=== PATIENT | female | born 1960 | race African-American/Black ===

== ENCOUNTER 2021-08-07 08:08 | Emergency (ER) | payer OTHER, SELFPAY ==
[2021-08-07] VITALS (20 sets, daily range): BP systolic 132–157; BP diastolic 64–80; PULSE 80–89; RESP 16–18; TEMP 36.6; O2SAT 93–98
--- NOTE | ~2021-08-07 | XR_ITS ---
EXAMINATION: XR lumbar spine min 4V DATE: 08/07/2021 09:34 INDICATION: Low back pain. TECHNIQUE: 5 views of lumbar spine were obtained. COMPARISON: None. FINDINGS: There is 3 mm retrolisthesis of L2 on L3. There is 4 degrees dextrocurvature of lumbar spin e. Vertebral body heights are normal. There is moderately decreased disc height at L2-L3 and mildly d ecreased disc height at L3-L4. There are endplate osteophytes at all levels. There is multilevel mild facet joint osteoarthritis. Surgical clips in the right upper quadrant are likely from cholecystecto my. IMPRESSION: 1. Moderate lumbar spondylosis. Reviewed, dictated and finalized at location A.
[2021-08-07] MEDS: KETOROLAC 30 MG/ML VIAL (*BKC) (09:09)
[2021-08-07] MEDS: fentaNYL CITRATE INJ (*CRX) 100 MCG/2 ML VIAL 50 MCG IV PUSH ×2 (09:09→10:35)
[2021-08-07 10:36] LABS: Appearance Urine Clear (Clear); Bilirubin Urine Negative (Negative); Blood Urine Negative (Negative); Color Urine Yellow (Yellow); Glucose Urine UA 2+ mg/dL (Negative); Ketones Urine Negative (Negative); Leukocyte Esterase Ur Negative LEU/UL (Negative); Nitrate Urine Negative (Negative); Protein Urine Negative (Negative)
[2021-08-07 10:49] LABS: Add Urine Microscopic? YES
--- NOTE | 2021-08-07 12:37 | ED.BACK ---
HPI - Back Pain/Injury General Chief Complaint: Back Pain/Injury Stated Complaint: hurt back moving 70 lbs, right leg pain Time Seen by Provider: 08/07/21 08:17 Source: patient and family Mode of arrival: ambulatory Limitations: no limitations History of Present Illness HPI Narrative: 61-year-old with a history of hypertension, diabetes here with complaints of low back pain for past few days. Patient states that she was lifting and carrying heavy boxes and bending. Now complaining of low back pain radiating into her legs. She denies any bladder or bowel incontinence. She also complains of constipation. No history of fever or chills. MD elicited complaint: back pain Onset (ago): day(s) (3) Timing: constant Severity: severe Quality: aching Location: lumbar spine Radiation: left upper leg and right upper leg Exacerbating factors: movement Relieving factors: none Context: while lifting and bending Associated symptoms: denies other symptoms Related Data Home Medications Medication Instructions Recorded Confirmed anastrozole 1 mg tablet tablet 08/07/21 atorvastatin 10 mg tablet tablet 08/07/21 fluoxetine 40 mg capsule cap 08/07/21 glipizide 5 mg tablet, extended tablet PO 08/07/21 release 24 hr hydrochlorothiazide 25 mg tablet tablet 08/07/21 losartan 50 mg tablet tablet 08/07/21 Allergies Allergy/AdvReac Type Severity Reaction Status Date / Time No Known Allergies Allergy Verified 08/07/21 08:23 Review of Systems Review of Systems: All systems reviewed & are unremarkable except as noted in HPI and below Constitutional: Constitutional: Reports no additional constitutional complaints Eyes: Eyes: Reports no additional eye complaints ENT: Reports system reviewed and no additional complaints, except as documented Cardiovascular: Cardiovascular: Reports no additional cardiovascular complaints Respiratory: Respiratory: Reports no additional respiratory complaints Gastrointestinal: Gastrointestinal: Reports no additional gastrointestinal complaints Genitourinary: Genitourinary: Reports no additional female genitourinary complaints Musculoskeletal: Musculoskeletal: Reports as per HPI Neurologic: Reports system reviewed and no additional complaints, except as documented Psychiatric: Psychiatric: Reports no additional psychiatric complaints Endocrine: Endocrine: Reports no additional endocrine complaints Exam Narrative: GENERAL: Well-appearing, well-nourished, and in no acute distress. HEAD: Normocephalic, atraumatic. EYES: PERRLA and EOMI. NECK: Supple. CHEST: Clear to auscultation. No respiratory distress. HEART: Regular rate and rhythm. No murmur heard. Normal peripheral pulses. ABDOMEN: Soft, nontender, nondistended, normal active bowel sounds. EXTREMITIES: Normal range of motion. No edema. Back pain in the L5 and S1 area, SLR positive at 30 degree on the right , SKIN: Warm, dry, no rash. NEURO: No focal deficits. Alert and oriented x3. PSYCH: Normal mood and affect. Course Course Emergency Course: Patient continues to have pain I did give her IV fentanyl, Toradol, Decadron. I did inform the patient and the family about x-ray findings. Recommended her to take pain medication and muscle relaxers as prescribed. Follow-up with her primary doctor in a week if it is not getting better Vital Signs Vital signs: Vital Signs Temperature 36.6 C 08/07/21 08:17 Pulse Rate 82 08/07/21 08:17 Respiratory Rate 18 08/07/21 08:17 Blood Pressure 155/80 H 08/07/21 08:17 Pulse Oximetry 98 08/07/21 08:17 Oxygen Delivery Room Air 08/07/21 08:17 Temperature 36.6 C 08/07/21 08:17 Pulse Rate 80 08/07/21 09:51 Respiratory Rate 16 08/07/21 09:51 Blood Pressure 136/67 08/07/21 10:31 Pulse Oximetry 96 08/07/21 10:47 Oxygen Delivery Room Air 08/07/21 08:17 MDM - Back Pain/Injury Differential Diagnosis Differential diagnosis: Likely lumbar radiculopathy and st
--- NOTE | 2021-08-07 12:42 | PC.NURSE ---
additional versed 4 mg given ivp. care transferred to [facility] for transport to [facility].
[2021-08-07] MEDS: oxyCODONE/ACETAMINOPHEN (*CRX) 5-325 MG TABLET 1 TABLET PO (13:00)
== END 2021-08-07 16:17 | disposition home or self-care (01) ==
PROVIDERS: Emergency Provider Family Medicine
DX: M54.16 Radiculopathy, lumbar region (principal); X50.0XXA Overexertion from strenuous movement or load, initial encounter
CPT/HCPCS: 72110; 81001; 96374; 96375; 96376; 99284; A9270; J1100; J1885; J3010